=== PATIENT | female | born 1995 | race Two or more races ===

== ENCOUNTER 2023-11-23 16:35 | Emergency (ER) | payer OTHER ==
[~2023-11-23] VITALS: Ht 162.6 cm; Wt 97.5 kg
[2023-11-23] MEDS ORDERED: GUAIFENESIN 200 MG/10 ML BLIST.PACK PO ONE (17:45)
[2023-11-23] MEDS ORDERED: BENZONATATE 100 MG CAPSULE PO ONE (17:45)
[2023-11-23 18:29] LABS: HEMATOCRIT 37.1 % (36.0-45.00); HEMOGLOBIN 12.5 g/dL (12.0-15.00); MEAN CELL VOLUME 80.5 fL (80.00-100.00); MEAN CORPUSCULAR HEMOGLOBIN 27.1 pg (27.00-32.0); MEAN CORPUSCULAR HGB CONC 33.7 g/dl (32.0-36.0); PLATELET COUNT 303 K/uL (150-450); RED BLOOD COUNT 4.61 M/uL (4.00-6.00); RED CELL DISTRIBUTION WIDTH 13.3 % (11.5-14.5)
== END 2023-11-23 20:06 | disposition home or self-care (01) ==
LOC: ER 16:36
PROVIDERS: General Practice
DX: J10.1 Influenza due to other identified influenza virus with other respiratory manifestations (principal); Z20.822 Contact with and (suspected) exposure to COVID-19